=== PATIENT | female | born 1960 | race Caucasian/White ===

== ENCOUNTER 2023-09-06 02:10 | Emergency (ER) | payer BC ==
[2023-09-06] MEDS: Lidocaine 1% 5 ML VIAL INJECT ONE (03:15)
[2023-09-06] MEDS: Bacitracin Oint 1 GM U/D Packet TOP ONE (03:53)
[2023-09-06] MEDS: Diphtheria,Pertussis(Acell),Tetanus Vaccine 0.5 ML Syringe IM ONE (03:53)
== END 2023-09-06 04:15 | disposition home or self-care (01) ==
LOC: JP.ED 02:10
DX: S62.111A Displaced fracture of triquetrum [cuneiform] bone, right wrist, initial encounter for closed fracture (principal); S52.571A Other intraarticular fracture of lower end of right radius, initial encounter for closed fracture; S01.111A Laceration without foreign body of right eyelid and periocular area, initial encounter; S93.602A Unspecified sprain of left foot, initial encounter; S40.011A Contusion of right shoulder, initial encounter; Z23 Encounter for immunization; W13.3XXA Fall through floor, initial encounter
CPT/HCPCS: 12011; 29125; 70486; 73110-RT; 73630-LT; 90471; 90715; 99284-25